=== PATIENT | female | born 1950 | race Caucasian/White ===

== ENCOUNTER 2017-04-26 17:04 | Emergency (ER) | payer OTHER, MEDICARE ==
[~2017-04-26] VITALS: Ht 165.1 cm; Wt 55.3 kg
[~2017-04-26 17:04] MED LIST: CLOP75TA2 PO; ENAL5TAB85 PO; INSU1CAR SQ; LIP20 PO; RALO60TA PO; SERT100T PO
[2017-04-26 17:15] VITALS: BP_SYST 102
[2017-04-26 18:08] LABS: BASOPHILS % (AUTO) 0.7 % (0.0-2.0); EOSINOPHILS # (AUTO) 0.1 K/uL (0.0-0.4); EOSINOPHILS % (AUTO) 2.7 % (0.0-4.0); HEMATOCRIT 31.5 % (36-48); HEMOGLOBIN 10.5 g/dL (12.0-16.0); LYMPHOCYTES # (AUTO) 1.5 K/uL (1.0-5.5); LYMPHOCYTES % (AUTO) 27.7 % (20.5-51.5); MEAN CORPUSCULAR HEMOGLOBIN 31 pg (27-31); MEAN CORPUSCULAR HGB CONC 33 % (32-36); MEAN CORPUSCULAR VOLUME 93 fL (79.0-98.0); MONOCYTES # (AUTO) 0.3 K/uL (0.0-1.0); MONOCYTES % (AUTO) 6.3 % (1.7-9.3); NEUTROPHILS # (AUTO) 3.4 K/uL (1.8-7.7); NEUTROPHILS % (AUTO) 62.6 % (40.0-70.0); PLATELET COUNT (AUTO) 276 K/uL (130-430); RED BLOOD CELL COUNT(AUTO) 3.38 MIL/uL (4.2-6.2); RED CELL DISTRIBUTION WIDTH 11.9 % (9.0-15.0); WHITE BLOOD COUNT (AUTO) 5.3 K/uL (4.8-10.8)
[2017-04-26 18:09] LABS: CALCIUM 9.2 mg/dL (8.4-11.0); CREATININE 2.44 mg/dL (0.55-1.30); POTASSIUM 4.9 mmol/L (3.5-5.1)
[2017-04-26 18:25] LABS: ALBUMIN 3.3 g/dL (3.4-4.8); TOTAL BILIRUBIN 0.3 mg/dL (0.0-1.0)
[2017-04-26] MEDS ORDERED: NACL 0.9% 1,000 ML IV ONE (18:45)
[2017-04-26 19:41] LABS: BILIRUBIN,URINE NEGATIVE (NEGATIVE); BLOOD, URINE 1+ (NEGATIVE); CLARITY/URINE HAZY (CLEAR); COLOR,URINE YELLOW (YELLOW); GLUCOSE,URINE TRACE (NEGATIVE); KETONES,URINE NEGATIVE (NEGATIVE); LEUKOCYTE ESTERASE ,URINE 3+ (NEGATIVE); NITRITE, URINE NEGATIVE (NEGATIVE); PH,URINE 5.5 (5.0-8.0); PROTEIN URINE TRACE (NEGATIVE); UROBILINOGEN,URINE 0.2 (0.2-1.0)
[2017-04-26] MEDS ORDERED: DEXTROSE 50% JECT 50 ML DISP.SYRIN IVP ONE (19:45)
[2017-04-26 19:47] LABS: BACTERIA,URINE MANY /HPF (None Seen); MUCUS,URINE None Seen /LPF (None Seen); RBC,URINE 0-3 /HPF (0-3); WBC,URINE 80-100 /HPF (0-3)
[2017-04-26] MEDS ORDERED: cefTRIAXone 1 GM IVPB PREMIX 50 ML IV ONE (20:00)
[2017-04-26 22:10] VITALS: BP_SYST 114
== END 2017-04-26 22:10 | disposition home or self-care (01) ==
LOC: SED 17:04
DX: E11.65 Type 2 diabetes mellitus with hyperglycemia (principal); N39.0 Urinary tract infection, site not specified; I10 Essential (primary) hypertension; Z90.49 Acquired absence of other specified parts of digestive tract; Z79.4 Long term (current) use of insulin; Z88.8 Allergy status to other drugs, medicaments and biological substances
CPT/HCPCS: 36415; 80053; 81000; 82962; 83605; 84484; 85025; 87040; 87086; 87186; 93005; 96361; 96365; 99285; J0696; J7030

== ENCOUNTER 2017-06-17 17:41 | Emergency (ER) | payer OTHER, MEDICARE, MEDICAID ==
[~2017-06-17] VITALS: Ht 165.1 cm; Wt 55.3 kg
[2017-06-17 17:41] VITALS: BP_SYST 117
[2017-06-17] MEDS ORDERED: DEXTROSE 50% JECT 50 ML DISP.SYRIN ONE (18:02)
[2017-06-17] MEDS ORDERED: DEXTROSE 50% JECT 50 ML DISP.SYRIN IVP ONE (18:15)
[2017-06-17 18:39] LABS: BASOPHILS % (AUTO) 0.6 % (0.0-2.0); EOSINOPHILS # (AUTO) 0.2 K/uL (0.0-0.4); EOSINOPHILS % (AUTO) 2.7 % (0.0-4.0); HEMATOCRIT 29.9 % (36-48); HEMOGLOBIN 9.9 g/dL (12.0-16.0); LYMPHOCYTES # (AUTO) 1.4 K/uL (1.0-5.5); LYMPHOCYTES % (AUTO) 21.1 % (20.5-51.5); MEAN CORPUSCULAR HEMOGLOBIN 32 pg (27-31); MEAN CORPUSCULAR HGB CONC 33 % (32-36); MEAN CORPUSCULAR VOLUME 98 fL (79.0-98.0); MONOCYTES # (AUTO) 0.4 K/uL (0.0-1.0); MONOCYTES % (AUTO) 6.1 % (1.7-9.3); NEUTROPHILS # (AUTO) 4.6 K/uL (1.8-7.7); NEUTROPHILS % (AUTO) 69.5 % (40.0-70.0); PLATELET COUNT (AUTO) 223 K/uL (130-430); RED BLOOD CELL COUNT(AUTO) 3.06 MIL/uL (4.2-6.2); RED CELL DISTRIBUTION WIDTH 12.4 % (9.0-15.0); WHITE BLOOD COUNT (AUTO) 6.6 K/uL (4.8-10.8)
[2017-06-17 18:41] LABS: CALCIUM 8.7 mg/dL (8.4-11.0); CREATININE 2.76 mg/dL (0.55-1.30)
[2017-06-17 18:55] LABS: THYROID STIMULATING HORMONE 0.25 uIu/mL (0.36-3.74); TOTAL BILIRUBIN 0.2 mg/dL (0.0-1.0)
[2017-06-17 21:24] VITALS: BP_SYST 132
== END 2017-06-17 21:24 | disposition home or self-care (01) ==
LOC: SED 17:41
DX: E11.649 Type 2 diabetes mellitus with hypoglycemia without coma (principal); E11.22 Type 2 diabetes mellitus with diabetic chronic kidney disease; I12.9 Hypertensive chronic kidney disease with stage 1 through stage 4 chronic kidney disease, or unspecified chronic kidney disease; N18.9 Chronic kidney disease, unspecified; D64.9 Anemia, unspecified; E34.9 Endocrine disorder, unspecified; Z79.4 Long term (current) use of insulin
CPT/HCPCS: 36415; 71010; 80053; 84439; 84443-TC; 84484; 85025; 93005; 96374; 99285

== ENCOUNTER 2018-06-07 21:43 | Inpatient (IN) | payer MEDICAID, MEDICARE, OTHER ==
[~2018-06-07] VITALS: Ht 162.6 cm; Wt 54.9 kg
[~2018-06-07 21:43] MED LIST changes: +ENAL5TAB77 PO; -ENAL5TAB85 PO; -INSU1CAR SQ; +INSU1CAR16 SQ
[2018-06-07 22:00] VITALS: BP_SYST 158
[2018-06-07] MEDS ORDERED: LEVO100T9 PO (22:56)
[2018-06-07] MEDS ORDERED: PARO-41 PO (22:56)
[2018-06-07] MEDS ORDERED: MIRA50TA PO (22:57)
[2018-06-07] MEDS ORDERED: CALC1CAP19 PO (22:58)
[2018-06-07] MEDS ORDERED: ATOR10TA68 PO (22:59)
[2018-06-07] MEDS ORDERED: TAMS-11 PO (22:59)
[2018-06-07] MEDS ORDERED: FOLI-43 PO (23:00)
[2018-06-07] MEDS ORDERED: MULT-1164 PO (23:01)
[2018-06-07] MEDS ORDERED: ACET-2165 PO (23:01)
[2018-06-07] MEDS ORDERED: NACL 0.9% 1,000 ML IV ONE (23:02)
[2018-06-07] MEDS ORDERED: DICY10CA13 PO (23:03)
[2018-06-07] MEDS ORDERED: INSU100V SQ (23:05)
[2018-06-07] MEDS ORDERED: INSU300I SQ ×2 (23:06)
[2018-06-07] MEDS ORDERED: INSULIN REGULAR, HUMAN 10 UNITS/0.1 ML INJ IVP ONE (23:15)
[2018-06-07 23:25] LABS: BASOPHILS % (AUTO) 0.2 % (0.0-2.0); EOSINOPHILS % (AUTO) 0.3 % (0.0-4.0); HEMATOCRIT 37.3 % (36-48); HEMOGLOBIN 11.9 g/dL (12.0-16.0); LYMPHOCYTES # (AUTO) 0.8 K/uL (1.0-5.5); LYMPHOCYTES % (AUTO) 5.1 % (20.5-51.5); MEAN CORPUSCULAR HEMOGLOBIN 33 pg (27-31); MEAN CORPUSCULAR HGB CONC 32 % (32-36); MEAN CORPUSCULAR VOLUME 105 fL (79.0-98.0); MONOCYTES # (AUTO) 0.7 K/uL (0.0-1.0); MONOCYTES % (AUTO) 4.5 % (1.7-9.3); NEUTROPHILS # (AUTO) 14.2 K/uL (1.8-7.7); NEUTROPHILS % (AUTO) 89.9 % (40.0-70.0); PLATELET COUNT (AUTO) 248 K/uL (130-430); PROTHROMBIN TIME 10.4 SECS (9.5-12.5); RED BLOOD CELL COUNT(AUTO) 3.57 MIL/uL (4.2-6.2); RED CELL DISTRIBUTION WIDTH 12.4 % (9.0-15.0); WHITE BLOOD COUNT (AUTO) 15.8 K/uL (4.8-10.8)
[2018-06-07 23:26] LABS: ANION GAP 31 (5-15); CALCIUM 9.6 mg/dL (8.4-11.0); CHLORIDE 88 mmol/L (98-107); SODIUM SERUM 129 mmol/L (136-145); UREA NITROGEN, BLOOD 68 mg/dL (8-21)
[2018-06-07 23:27] LABS: ALANINE AMINOTRANSFERASE 20 U/L (12-78); ALBUMIN 3.6 g/dL (3.4-4.8); ASPARTATE AMINOTRANSFERASE 21 U/L (10-37); TOTAL BILIRUBIN 0.8 mg/dL (0.0-1.0)
[2018-06-07 23:39] LABS: ACETONE, SERUM MODERATE (NEGATIVE)
[2018-06-07 23:42] LABS: GFR AFRICAN AMERICAN 16 mL/min (>90)
[2018-06-07 23:43] LABS: GLUCOSE 910 mg/dL (70-99); POTASSIUM 6.5 mmol/L (3.5-5.1)
[2018-06-08] VITALS (21 sets, daily range): BP systolic 106–146
[2018-06-08] MEDS ORDERED: NACL 0.9% 1,000 ML IV ONE (00:13)
[2018-06-08] MEDS ORDERED: ASPIRIN 81 MG TAB.CHEW PO ONE (00:15)
[2018-06-08] MEDS ORDERED: INSULIN REGULAR, HUMAN 10 UNITS/0.1 ML INJ IVP ONE (00:30)
[2018-06-08] MEDS ORDERED: ASPIRIN 81 MG TAB.CHEW ONE (00:51)
[2018-06-08] MEDS ORDERED: 0.45% NACL 1,000 ML IV SCH (01:01)
[2018-06-08] MEDS ORDERED: DEXTROSE 50% JECT 50 ML DISP.SYRIN IVP PRN (01:30)
[2018-06-08] MEDS: INSULIN REGULAR, HUMAN 100 UNITS in NS 99 ML IV PRN ×2 (02:00)
[2018-06-08] MEDS ORDERED: CEFEPIME 1 GM/VIAL (MAXIPIME) ONE (02:11)
[2018-06-08 02:36] LABS: CALCIUM 8.6 mg/dL (8.4-11.0); CREATININE 3.69 mg/dL (0.55-1.30); POTASSIUM 4.6 mmol/L (3.5-5.1)
[2018-06-08] MEDS: ACETAMINOPHEN 325 MG TABLET PO PRN (02:39)
[2018-06-08 04:32] LABS: BILIRUBIN,URINE 1+ (NEGATIVE); BLOOD, URINE 3+ (NEGATIVE); CLARITY/URINE SL HAZY (CLEAR); COLOR,URINE YELLOW (YELLOW); GLUCOSE,URINE 3+ (NEGATIVE); KETONES,URINE 2+ (NEGATIVE); LEUKOCYTE ESTERASE ,URINE NEGATIVE (NEGATIVE); NITRITE, URINE NEGATIVE (NEGATIVE); PH,URINE 5.5 (5.0-8.0); PROTEIN URINE TRACE (NEGATIVE); UROBILINOGEN,URINE 0.2 (0.2-1.0)
[2018-06-08 04:53] LABS: BACTERIA,URINE MODERATE /HPF (None Seen); RBC,URINE 20-50 /HPF (0-3)
[2018-06-08] MEDS: LEVOTHYROXINE SODIUM 0.1 MG TABLET PO SCH (06:51)
[2018-06-08 07:12] LABS: BASOPHILS % (AUTO) 0.3 % (0.0-2.0); HEMOGLOBIN 10.7 g/dL (12.0-16.0); LYMPHOCYTES # (AUTO) 1.3 K/uL (1.0-5.5); LYMPHOCYTES % (AUTO) 8.9 % (20.5-51.5); MEAN CORPUSCULAR HEMOGLOBIN 34 pg (27-31); MEAN CORPUSCULAR HGB CONC 34 % (32-36); MEAN CORPUSCULAR VOLUME 100 fL (79.0-98.0); MONOCYTES # (AUTO) 0.8 K/uL (0.0-1.0); MONOCYTES % (AUTO) 5.9 % (1.7-9.3); NEUTROPHILS # (AUTO) 12.3 K/uL (1.8-7.7); NEUTROPHILS % (AUTO) 84.9 % (40.0-70.0); PLATELET COUNT (AUTO) 202 K/uL (130-430); RED CELL DISTRIBUTION WIDTH 11.5 % (9.0-15.0); WHITE BLOOD COUNT (AUTO) 14.4 K/uL (4.8-10.8)
[2018-06-08 07:23] LABS: PHOSPHORUS 3.2 mg/dL (2.7-4.5)
[2018-06-08] MEDS ORDERED: DICYCLOMINE HCL 10 MG CAPSULE PO PRN (07:30)
[2018-06-08 07:50] LABS: ACETONE, SERUM SMALL (NEGATIVE)
[2018-06-08 08:06] LABS: ANION GAP 16 (5-15); CHLORIDE 101 mmol/L (98-107); POTASSIUM 4.2 mmol/L (3.5-5.1); SODIUM SERUM 135 mmol/L (136-145)
[2018-06-08 08:09] LABS: CALCIUM 8.5 mg/dL (8.4-11.0); CREATININE 3.47 mg/dL (0.55-1.30); GFR AFRICAN AMERICAN 17 mL/min (>90); GLUCOSE 460 mg/dL (70-99); UREA NITROGEN, BLOOD 68 mg/dL (8-21)
[2018-06-08 08:10] LABS: ALANINE AMINOTRANSFERASE 19 U/L (12-78); ASPARTATE AMINOTRANSFERASE 18 U/L (10-37); TOTAL BILIRUBIN 0.4 mg/dL (0.0-1.0)
[2018-06-08] MEDS: CLOPIDOGREL BISULFATE 75 MG TABLET PO SCH (08:43)
[2018-06-08] MEDS: FOLIC ACID 1 MG TABLET PO SCH (08:43)
[2018-06-08] MEDS: MULTIVITS,CA,MINERALS/IRON/FA 1 TABLET PO SCH (08:44)
[2018-06-08] MEDS: CALCIUM CARBONATE/VITAMIN D3 1 TAB TABLET PO SCH (08:44)
[2018-06-08] MEDS: PARoxetine HCL 20 MG TABLET PO SCH (08:44)
[2018-06-08] MEDS: KCL 20 mEq in 0.45% NS 1000 mL 1,000 ML IV SCH ×3 (08:45→20:53)
[2018-06-08] MEDS ORDERED: MYRBETRIQ 50 MG PO SCH (09:00)
[2018-06-08] MEDS ORDERED: CALCIUM CARBONATE PO SCH (09:00)
[2018-06-08] MEDS ORDERED: VITAMIN D3 PO SCH (09:00)
[2018-06-08] MEDS ORDERED: [UNRECOGNIZED DRUG - OTHER] PO SCH (09:00)
[2018-06-08 10:45] LABS: CALCIUM 8.2 mg/dL (8.4-11.0); CREATININE 3.34 mg/dL (0.55-1.30); POTASSIUM 4.3 mmol/L (3.5-5.1)
[2018-06-08 14:35] LABS: CALCIUM 8.3 mg/dL (8.4-11.0); CREATININE 3.26 mg/dL (0.55-1.30); POTASSIUM 4.5 mmol/L (3.5-5.1)
[2018-06-08 18:28] LABS: CALCIUM 8.3 mg/dL (8.4-11.0); CREATININE 2.95 mg/dL (0.55-1.30); POTASSIUM 4.9 mmol/L (3.5-5.1)
[2018-06-08] MEDS: ATORVASTATIN 10 MG TABLET PO SCH (20:52)
[2018-06-08] MEDS: CEFEPIME 1 GM in D5W 50 ML IV SCH (20:52)
[2018-06-08] MEDS: TAMSULOSIN HCL 0.4 MG CAP PO SCH (20:53)
[2018-06-08] MEDS ORDERED: NON-FORMULARY MEDICATION (Tamsulosin Hcl (Flomax) 0.4 MG) PO SCH (21:00)
[2018-06-08 22:21] LABS: CALCIUM 8.2 mg/dL (8.4-11.0); CREATININE 2.8 mg/dL (0.55-1.30)
[2018-06-09] VITALS (24 sets, daily range): BP systolic 107–172
[2018-06-09] MEDS: KCL 20 mEq in 0.45% NS 1000 mL 1,000 ML IV SCH ×2 (03:16→11:53)
[2018-06-09 06:22] LABS: BASOPHILS % (AUTO) 0.3 % (0.0-2.0); EOSINOPHILS # (AUTO) 0.1 K/uL (0.0-0.4); EOSINOPHILS % (AUTO) 0.4 % (0.0-4.0); HEMATOCRIT 31.5 % (36-48); HEMOGLOBIN 10.5 g/dL (12.0-16.0); LYMPHOCYTES # (AUTO) 1.5 K/uL (1.0-5.5); LYMPHOCYTES % (AUTO) 11.2 % (20.5-51.5); MEAN CORPUSCULAR HEMOGLOBIN 33 pg (27-31); MEAN CORPUSCULAR HGB CONC 33 % (32-36); MEAN CORPUSCULAR VOLUME 100 fL (79.0-98.0); MONOCYTES # (AUTO) 0.6 K/uL (0.0-1.0); MONOCYTES % (AUTO) 4.3 % (1.7-9.3); NEUTROPHILS # (AUTO) 11.3 K/uL (1.8-7.7); NEUTROPHILS % (AUTO) 83.8 % (40.0-70.0); PLATELET COUNT (AUTO) 194 K/uL (130-430); RED BLOOD CELL COUNT(AUTO) 3.16 MIL/uL (4.2-6.2); WHITE BLOOD COUNT (AUTO) 13.5 K/uL (4.8-10.8)
[2018-06-09] MEDS: LEVOTHYROXINE SODIUM 0.1 MG TABLET PO SCH (07:05)
[2018-06-09 07:17] LABS: SODIUM SERUM 135 mmol/L (136-145)
[2018-06-09 07:18] LABS: ANION GAP 8 (5-15); CALCIUM 8.3 mg/dL (8.4-11.0); CHLORIDE 105 mmol/L (98-107); CREATININE 2.64 mg/dL (0.55-1.30); GFR AFRICAN AMERICAN 23 mL/min (>90); GLUCOSE 244 mg/dL (70-99); POTASSIUM 4.5 mmol/L (3.5-5.1); UREA NITROGEN, BLOOD 61 mg/dL (8-21)
[2018-06-09 07:19] LABS: AMYLASE 455 U/L (0-100); LIPASE 188 U/L (73-393)
[2018-06-09 07:52] LABS: ACETONE, SERUM NEGATIVE (NEGATIVE)
[2018-06-09] MEDS: CALCIUM CARBONATE/VITAMIN D3 1 TAB TABLET PO SCH ×2 (08:58→09:00)
[2018-06-09] MEDS: PARoxetine HCL 20 MG TABLET PO SCH ×2 (08:58→09:00)
[2018-06-09] MEDS: MULTIVITS,CA,MINERALS/IRON/FA 1 TABLET PO SCH ×2 (08:58→09:00)
[2018-06-09] MEDS: FOLIC ACID 1 MG TABLET PO SCH ×2 (08:58→09:00)
[2018-06-09] MEDS: CLOPIDOGREL BISULFATE 75 MG TABLET PO SCH ×2 (08:58→09:00)
[2018-06-09] MEDS: INSULIN REGULAR, HUMAN 100 UNITS in NS 99 ML IV PRN ×2 (13:05)
[2018-06-09] MEDS: TAMSULOSIN HCL 0.4 MG CAP PO SCH (20:40)
[2018-06-09] MEDS: CEFEPIME 1 GM in D5W 50 ML IV SCH (20:40)
[2018-06-09] MEDS: ATORVASTATIN 10 MG TABLET PO SCH (20:41)
[2018-06-09] MEDS: ACETAMINOPHEN 325 MG TABLET PO PRN (22:30)
[2018-06-09] MEDS: ONDANSETRON HCL 4 MG/2 ML VIAL IVP PRN (22:35)
[2018-06-10] VITALS (24 sets, daily range): BP systolic 118–178
[2018-06-10] MEDS: ACETAMINOPHEN 325 MG TABLET PO PRN (02:23)
[2018-06-10] MEDS: ONDANSETRON HCL 4 MG/2 ML VIAL IVP PRN ×2 (02:46→10:08)
[2018-06-10 05:32] LABS: CALCIUM 8.9 mg/dL (8.4-11.0); CREATININE 2.26 mg/dL (0.55-1.30)
[2018-06-10 05:33] LABS: BASOPHILS % (AUTO) 0.4 % (0.0-2.0); EOSINOPHILS # (AUTO) 0.1 K/uL (0.0-0.4); EOSINOPHILS % (AUTO) 0.9 % (0.0-4.0); HEMATOCRIT 35.1 % (36-48); HEMOGLOBIN 12.1 g/dL (12.0-16.0); LYMPHOCYTES # (AUTO) 0.5 K/uL (1.0-5.5); LYMPHOCYTES % (AUTO) 5.2 % (20.5-51.5); MEAN CORPUSCULAR HEMOGLOBIN 35 pg (27-31); MEAN CORPUSCULAR HGB CONC 35 % (32-36); MEAN CORPUSCULAR VOLUME 101 fL (79.0-98.0); MONOCYTES # (AUTO) 0.4 K/uL (0.0-1.0); MONOCYTES % (AUTO) 3.8 % (1.7-9.3); NEUTROPHILS # (AUTO) 8.3 K/uL (1.8-7.7); NEUTROPHILS % (AUTO) 89.7 % (40.0-70.0); PLATELET COUNT (AUTO) 157 K/uL (130-430); RED BLOOD CELL COUNT(AUTO) 3.47 MIL/uL (4.2-6.2); RED CELL DISTRIBUTION WIDTH 12.2 % (9.0-15.0)
[2018-06-10 05:36] LABS: WHITE BLOOD COUNT (AUTO) 9.3 K/uL (4.8-10.8)
[2018-06-10 05:47] LABS: ALBUMIN 2.8 g/dL (3.4-4.8); TOTAL BILIRUBIN 0.8 mg/dL (0.0-1.0)
[2018-06-10 06:01] LABS: POTASSIUM 6.8 mmol/L (3.5-5.1)
[2018-06-10] MEDS: LEVOTHYROXINE SODIUM 0.1 MG TABLET PO SCH (06:52)
[2018-06-10] MEDS: INSULIN REGULAR, HUMAN 100 UNITS/ML, 10 ML VIAL (novoLIN R) SUBCUT PRN ×3 (07:23→17:37)
[2018-06-10] MEDS ORDERED: SODIUM POLYSTYRENE SULFONATE 15 GM/60 ML UDBTL PO ONE (07:30)
[2018-06-10] MEDS: 0.45% NACL 1,000 ML IV SCH ×2 (08:29→19:31)
[2018-06-10] MEDS: PARoxetine HCL 20 MG TABLET PO SCH (09:45)
[2018-06-10] MEDS: MULTIVITS,CA,MINERALS/IRON/FA 1 TABLET PO SCH (09:45)
[2018-06-10] MEDS: CALCIUM CARBONATE/VITAMIN D3 1 TAB TABLET PO SCH (09:45)
[2018-06-10] MEDS: FOLIC ACID 1 MG TABLET PO SCH (09:45)
[2018-06-10] MEDS: CLOPIDOGREL BISULFATE 75 MG TABLET PO SCH (09:45)
[2018-06-10] MEDS ORDERED: METOPROLOL TARTRATE 50 MG TABLET PO ONE (10:30)
[2018-06-10 17:59] LABS: CALCIUM 8.6 mg/dL (8.4-11.0); CREATININE 2.17 mg/dL (0.55-1.30); POTASSIUM 4.4 mmol/L (3.5-5.1)
[2018-06-10] MEDS: ATORVASTATIN 10 MG TABLET PO SCH (20:08)
[2018-06-10] MEDS: TAMSULOSIN HCL 0.4 MG CAP PO SCH (20:08)
[2018-06-10] MEDS: METOPROLOL TARTRATE 50 MG TABLET PO SCH (20:09)
[2018-06-10] MEDS: CEFEPIME 1 GM in D5W 50 ML IV SCH (20:10)
[2018-06-11] VITALS (19 sets, daily range): BP systolic 114–150
[2018-06-11] MEDS: LEVOTHYROXINE SODIUM 0.1 MG TABLET PO SCH (06:11)
[2018-06-11] MEDS: 0.45% NACL 1,000 ML IV SCH ×2 (06:12→17:33)
[2018-06-11 06:23] LABS: BASOPHILS # (AUTO) 0.1 K/uL (0.0-0.2); BASOPHILS % (AUTO) 0.9 % (0.0-2.0); EOSINOPHILS # (AUTO) 0.2 K/uL (0.0-0.4); EOSINOPHILS % (AUTO) 2.5 % (0.0-4.0); HEMOGLOBIN 11.4 g/dL (12.0-16.0); LYMPHOCYTES # (AUTO) 2.1 K/uL (1.0-5.5); LYMPHOCYTES % (AUTO) 24.5 % (20.5-51.5); MEAN CORPUSCULAR HEMOGLOBIN 35 pg (27-31); MEAN CORPUSCULAR HGB CONC 36 % (32-36); MEAN CORPUSCULAR VOLUME 97 fL (79.0-98.0); MONOCYTES # (AUTO) 0.6 K/uL (0.0-1.0); MONOCYTES % (AUTO) 6.8 % (1.7-9.3); NEUTROPHILS # (AUTO) 5.5 K/uL (1.8-7.7); NEUTROPHILS % (AUTO) 65.3 % (40.0-70.0); PLATELET COUNT (AUTO) 177 K/uL (130-430); RED BLOOD CELL COUNT(AUTO) 3.29 MIL/uL (4.2-6.2); RED CELL DISTRIBUTION WIDTH 12.1 % (9.0-15.0)
[2018-06-11 07:05] LABS: WHITE BLOOD COUNT (AUTO) 8.5 K/uL (4.8-10.8)
[2018-06-11 07:07] LABS: CALCIUM 8.5 mg/dL (8.4-11.0); POTASSIUM 3.5 mmol/L (3.5-5.1)
[2018-06-11] MEDS: FOLIC ACID 1 MG TABLET PO SCH (09:06)
[2018-06-11] MEDS: CALCIUM CARBONATE/VITAMIN D3 1 TAB TABLET PO SCH (09:07)
[2018-06-11] MEDS: MULTIVITS,CA,MINERALS/IRON/FA 1 TABLET PO SCH (09:07)
[2018-06-11] MEDS: METOPROLOL TARTRATE 50 MG TABLET PO SCH ×2 (09:07→20:14)
[2018-06-11] MEDS: PARoxetine HCL 20 MG TABLET PO SCH (09:07)
[2018-06-11] MEDS: CLOPIDOGREL BISULFATE 75 MG TABLET PO SCH (09:10)
[2018-06-11] MEDS: INSULIN REGULAR, HUMAN 100 UNITS/ML, 10 ML VIAL (novoLIN R) SUBCUT PRN ×3 (11:23→20:21)
[2018-06-11] MEDS: TAMSULOSIN HCL 0.4 MG CAP PO SCH (20:14)
[2018-06-11] MEDS: ATORVASTATIN 10 MG TABLET PO SCH (20:14)
[2018-06-11] MEDS: CEFEPIME 1 GM in D5W 50 ML IV SCH (20:15)
[2018-06-12] MEDS: LEVOTHYROXINE SODIUM 0.1 MG TABLET PO SCH (06:08)
[2018-06-12 06:40] LABS: BASOPHILS # (AUTO) 0.1 K/uL (0.0-0.2); EOSINOPHILS # (AUTO) 0.3 K/uL (0.0-0.4); EOSINOPHILS % (AUTO) 5.2 % (0.0-4.0); HEMOGLOBIN 11.9 g/dL (12.0-16.0); LYMPHOCYTES % (AUTO) 32.3 % (20.5-51.5); MEAN CORPUSCULAR HEMOGLOBIN 34 pg (27-31); MEAN CORPUSCULAR HGB CONC 35 % (32-36); MEAN CORPUSCULAR VOLUME 97 fL (79.0-98.0); MONOCYTES # (AUTO) 0.3 K/uL (0.0-1.0); MONOCYTES % (AUTO) 5.5 % (1.7-9.3); NEUTROPHILS # (AUTO) 3.6 K/uL (1.8-7.7); PLATELET COUNT (AUTO) 176 K/uL (130-430); RED CELL DISTRIBUTION WIDTH 11.6 % (9.0-15.0); WHITE BLOOD COUNT (AUTO) 6.3 K/uL (4.8-10.8)
[2018-06-12 06:44] LABS: CALCIUM 8.4 mg/dL (8.4-11.0); CREATININE 1.73 mg/dL (0.55-1.30); POTASSIUM 3.4 mmol/L (3.5-5.1)
[2018-06-12 06:56] LABS: ALBUMIN 2.2 g/dL (3.4-4.8); TOTAL BILIRUBIN 0.3 mg/dL (0.0-1.0)
[2018-06-12 09:00] VITALS: BP_SYST 119
[2018-06-12] MEDS: CLOPIDOGREL BISULFATE 75 MG TABLET PO SCH (09:10)
[2018-06-12] MEDS: MULTIVITS,CA,MINERALS/IRON/FA 1 TABLET PO SCH (09:14)
[2018-06-12] MEDS: METOPROLOL TARTRATE 50 MG TABLET PO SCH ×2 (09:14→21:42)
[2018-06-12] MEDS: FOLIC ACID 1 MG TABLET PO SCH (09:14)
[2018-06-12] MEDS: PARoxetine HCL 20 MG TABLET PO SCH (09:14)
[2018-06-12] MEDS: CALCIUM CARBONATE/VITAMIN D3 1 TAB TABLET PO SCH (09:14)
[2018-06-12 11:30] VITALS: BP_SYST 149
[2018-06-12] MEDS: INSULIN REGULAR, HUMAN 100 UNITS/ML, 10 ML VIAL (novoLIN R) SUBCUT PRN ×3 (11:43→22:04)
[2018-06-12 15:53] VITALS: BP_SYST 144
[2018-06-12] MEDS: 0.45% NACL 1,000 ML IV SCH (16:27)
[2018-06-12] MEDS ORDERED: POTASSIUM CHLORIDE 20 MEQ TAB.PRT.SR PO ONE (16:30)
[2018-06-12 20:15] VITALS: BP_SYST 146
[2018-06-12] MEDS: TAMSULOSIN HCL 0.4 MG CAP PO SCH (21:41)
[2018-06-12] MEDS: ATORVASTATIN 10 MG TABLET PO SCH (21:42)
[2018-06-12] MEDS: CEFEPIME 1 GM in D5W 50 ML IV SCH (22:05)
[2018-06-13 00:40] VITALS: BP_SYST 139
[2018-06-13 07:20] LABS: CALCIUM 8.2 mg/dL (8.4-11.0); CREATININE 1.64 mg/dL (0.55-1.30); POTASSIUM 3.8 mmol/L (3.5-5.1)
[2018-06-13] MEDS: LEVOTHYROXINE SODIUM 0.1 MG TABLET PO SCH (07:22)
[2018-06-13 07:50] VITALS: BP_SYST 159
[2018-06-13] MEDS: CLOPIDOGREL BISULFATE 75 MG TABLET PO SCH (08:10)
[2018-06-13] MEDS: METOPROLOL TARTRATE 50 MG TABLET PO SCH ×2 (08:10→20:36)
[2018-06-13] MEDS: MULTIVITS,CA,MINERALS/IRON/FA 1 TABLET PO SCH (08:10)
[2018-06-13] MEDS: PARoxetine HCL 20 MG TABLET PO SCH (08:10)
[2018-06-13] MEDS: CALCIUM CARBONATE/VITAMIN D3 1 TAB TABLET PO SCH (08:10)
[2018-06-13] MEDS: FOLIC ACID 1 MG TABLET PO SCH (08:11)
[2018-06-13 11:33] VITALS: BP_SYST 136
[2018-06-13] MEDS: 0.45% NACL 1,000 ML IV SCH (11:37)
[2018-06-13] MEDS: INSULIN REGULAR, HUMAN 100 UNITS/ML, 10 ML VIAL (novoLIN R) SUBCUT PRN ×2 (11:38→17:12)
[2018-06-13] MEDS ORDERED: DEXTROSE 50%-WATER 50 ML DISP.SYRIN IVP PRN ×2 (13:45)
[2018-06-13] MEDS ORDERED: GLUCOSE 15 GM GEL (in 37.5 GM TUBE) PO PRN ×2 (13:45)
[2018-06-13 15:51] VITALS: BP_SYST 144
[2018-06-13 20:30] VITALS: BP_SYST 144
[2018-06-13] MEDS: TAMSULOSIN HCL 0.4 MG CAP PO SCH (20:35)
[2018-06-13] MEDS: CEFEPIME 1 GM in D5W 50 ML IV SCH (20:35)
[2018-06-13] MEDS: ATORVASTATIN 10 MG TABLET PO SCH (20:36)
[2018-06-14 00:54] VITALS: BP_SYST 142
[2018-06-14] MEDS: 0.45% NACL 1,000 ML IV SCH (05:18)
[2018-06-14] MEDS: LEVOTHYROXINE SODIUM 0.1 MG TABLET PO SCH (06:13)
[2018-06-14 08:12] VITALS: BP_SYST 125
[2018-06-14] MEDS: CLOPIDOGREL BISULFATE 75 MG TABLET PO SCH (09:13)
[2018-06-14] MEDS: FOLIC ACID 1 MG TABLET PO SCH (09:13)
[2018-06-14] MEDS: MULTIVITS,CA,MINERALS/IRON/FA 1 TABLET PO SCH (09:13)
[2018-06-14] MEDS: CALCIUM CARBONATE/VITAMIN D3 1 TAB TABLET PO SCH (09:13)
[2018-06-14] MEDS: PARoxetine HCL 20 MG TABLET PO SCH (09:13)
[2018-06-14] MEDS: METOPROLOL TARTRATE 50 MG TABLET PO SCH ×2 (09:14→21:23)
[2018-06-14] MEDS: INSULIN REGULAR, HUMAN 100 UNITS/ML, 10 ML VIAL (novoLIN R) SUBCUT PRN ×3 (11:47→21:26)
[2018-06-14 12:00] VITALS: BP_SYST 143
[2018-06-14 16:01] VITALS: BP_SYST 148
[2018-06-14 19:50] VITALS: BP_SYST 142
[2018-06-14] MEDS: ATORVASTATIN 10 MG TABLET PO SCH (21:22)
[2018-06-14] MEDS: TAMSULOSIN HCL 0.4 MG CAP PO SCH (21:23)
[2018-06-14] MEDS: CEFEPIME 1 GM in D5W 50 ML IV SCH (21:24)
[2018-06-15 00:35] VITALS: BP_SYST 133
[2018-06-15] MEDS: 0.45% NACL 1,000 ML IV SCH (02:19)
[2018-06-15 06:31] LABS: BASOPHILS # (AUTO) 0.1 K/uL (0.0-0.2); BASOPHILS % (AUTO) 1.9 % (0.0-2.0); EOSINOPHILS # (AUTO) 0.3 K/uL (0.0-0.4); EOSINOPHILS % (AUTO) 4.6 % (0.0-4.0); HEMATOCRIT 33.2 % (36-48); HEMOGLOBIN 11.6 g/dL (12.0-16.0); LYMPHOCYTES # (AUTO) 2.9 K/uL (1.0-5.5); MEAN CORPUSCULAR HEMOGLOBIN 34 pg (27-31); MEAN CORPUSCULAR HGB CONC 35 % (32-36); MEAN CORPUSCULAR VOLUME 97 fL (79.0-98.0); MONOCYTES # (AUTO) 0.5 K/uL (0.0-1.0); MONOCYTES % (AUTO) 6.7 % (1.7-9.3); NEUTROPHILS % (AUTO) 43.8 % (40.0-70.0); PLATELET COUNT (AUTO) 232 K/uL (130-430); RED BLOOD CELL COUNT(AUTO) 3.43 MIL/uL (4.2-6.2); RED CELL DISTRIBUTION WIDTH 11.6 % (9.0-15.0); WHITE BLOOD COUNT (AUTO) 6.8 K/uL (4.8-10.8)
[2018-06-15] MEDS: LEVOTHYROXINE SODIUM 0.1 MG TABLET PO SCH (06:31)
[2018-06-15 06:55] LABS: ALBUMIN 2.3 g/dL (3.4-4.8); CALCIUM 8.4 mg/dL (8.4-11.0); CREATININE 1.77 mg/dL (0.55-1.30); POTASSIUM 3.9 mmol/L (3.5-5.1); TOTAL BILIRUBIN 0.4 mg/dL (0.0-1.0)
[2018-06-15 08:20] VITALS: BP_SYST 129
[2018-06-15] MEDS: PARoxetine HCL 20 MG TABLET PO SCH (09:38)
[2018-06-15] MEDS: CALCIUM CARBONATE/VITAMIN D3 1 TAB TABLET PO SCH (09:38)
[2018-06-15] MEDS: FOLIC ACID 1 MG TABLET PO SCH (09:38)
[2018-06-15] MEDS: MULTIVITS,CA,MINERALS/IRON/FA 1 TABLET PO SCH (09:38)
[2018-06-15] MEDS: CLOPIDOGREL BISULFATE 75 MG TABLET PO SCH (09:39)
[2018-06-15] MEDS: METOPROLOL TARTRATE 50 MG TABLET PO SCH (09:39)
[2018-06-15 12:00] VITALS: BP_SYST 128
[2018-06-15] MEDS: INSULIN REGULAR, HUMAN 100 UNITS/ML, 10 ML VIAL (novoLIN R) SUBCUT PRN ×2 (12:24→17:26)
[2018-06-15 15:46] VITALS: BP_SYST 135
[2018-06-15 16:00] VITALS: BP_SYST 135
== END 2018-06-15 18:55 | DRG 871 ==
LOC: SED 21:43 → SIC 06-08 01:01 → STU 06-11 16:15
PROVIDERS: ADMIT Family Medicine; ATTEND Family Medicine
DX: A41.9 Sepsis, unspecified organism (principal); E11.00 Type 2 diabetes mellitus with hyperosmolarity without nonketotic hyperglycemic-hyperosmolar coma (NKHHC); E11.10 Type 2 diabetes mellitus with ketoacidosis without coma; G93.41 Metabolic encephalopathy; N17.0 Acute kidney failure with tubular necrosis; R65.21 Severe sepsis with septic shock; R47.01 Aphasia; N13.30 Unspecified hydronephrosis; E86.0 Dehydration; R56.9 Unspecified convulsions; N18.9 Chronic kidney disease, unspecified; E11.22 Type 2 diabetes mellitus with diabetic chronic kidney disease; I12.9 Hypertensive chronic kidney disease with stage 1 through stage 4 chronic kidney disease, or unspecified chronic kidney disease; E78.00 Pure hypercholesterolemia, unspecified; R13.10 Dysphagia, unspecified; E87.6 Hypokalemia; E87.5 Hyperkalemia; Z88.8 Allergy status to other drugs, medicaments and biological substances; Z86.73 Personal history of transient ischemic attack (TIA), and cerebral infarction without residual deficits; Z79.4 Long term (current) use of insulin; Z79.899 Other long term (current) drug therapy
CPT/HCPCS: 36415; 36600; 71045; 76770; 80048; 80053; 81000-TC; 82009-TC; 82150-TC; 82803-TC; 82962; 83605; 83690-TC; 83735-TC; 83880; 84100-TC; 84484; 85025; 85610-TC; 85730-TC; 87040-TC; 87081; 87086; 92610-GN; 93005; 96361; 96374; 96376; 97530-GP; 99285; J0692; J1815; J2405; J3480; J7030; J7060

== ENCOUNTER 2018-07-02 19:49 | Inpatient (IN) | payer OTHER ==
[~2018-07-02] VITALS: Ht 165.1 cm; Wt 58.1 kg
[~2018-07-02 19:49] MED LIST changes: +ACET-2165 PO; +ATOR10TA68 PO; +CALC1CAP19 PO; +DICY10CA13 PO; +FOLI-43 PO; +INSU100V SQ; -INSU1CAR16 SQ; +INSU300I SQ; +LEVO100T9 PO; -LIP20 PO; +MIRA50TA PO; +MULT-1164 PO; +PARO-41 PO; -RALO60TA PO; -SERT100T PO; +TAMS-11 PO
[2018-07-02 19:53] VITALS: BP_SYST 128
[2018-07-02] MEDS ORDERED: DEXTROSE 50% JECT 50 ML DISP.SYRIN IVP ONE ×2 (20:15→22:00)
[2018-07-02] MEDS ORDERED: NACL 0.9% 1,000 ML IV ONE (20:15)
[2018-07-02 20:40] LABS: CALCIUM 9.5 mg/dL (8.4-11.0); CREATININE 2.21 mg/dL (0.55-1.30); POTASSIUM 4.4 mmol/L (3.5-5.1)
[2018-07-02 20:42] LABS: BASOPHILS % (AUTO) 0.6 % (0.0-2.0); EOSINOPHILS # (AUTO) 0.3 K/uL (0.0-0.4); EOSINOPHILS % (AUTO) 5.2 % (0.0-4.0); HEMATOCRIT 35.5 % (36-48); HEMOGLOBIN 11.4 g/dL (12.0-16.0); LYMPHOCYTES # (AUTO) 2.9 K/uL (1.0-5.5); LYMPHOCYTES % (AUTO) 48.3 % (20.5-51.5); MEAN CORPUSCULAR HEMOGLOBIN 33 pg (27-31); MEAN CORPUSCULAR HGB CONC 32 % (32-36); MEAN CORPUSCULAR VOLUME 101 fL (79.0-98.0); MONOCYTES # (AUTO) 0.4 K/uL (0.0-1.0); MONOCYTES % (AUTO) 7.1 % (1.7-9.3); NEUTROPHILS # (AUTO) 2.2 K/uL (1.8-7.7); NEUTROPHILS % (AUTO) 38.8 % (40.0-70.0); PLATELET COUNT (AUTO) 241 K/uL (130-430); RED BLOOD CELL COUNT(AUTO) 3.53 MIL/uL (4.2-6.2); RED CELL DISTRIBUTION WIDTH 13.1 % (9.0-15.0); WHITE BLOOD COUNT (AUTO) 5.8 K/uL (4.8-10.8)
[2018-07-02 20:44] LABS: TOTAL BILIRUBIN 0.3 mg/dL (0.0-1.0)
[2018-07-02] MEDS ORDERED: ACETAMINOPHEN 500 MG TABLET PO ONE (22:00)
[2018-07-02] MEDS ORDERED: KCL 20 mEq in D5/0.45NS 1000mL 1,000 ML IV SCH (22:30)
[2018-07-02] MEDS ORDERED: METO-442 PO (22:35)
[2018-07-02 22:57] VITALS: BP_SYST 142
[2018-07-02] MEDS ORDERED: ACETAMINOPHEN 325 MG TABLET PO PRN (23:30)
[2018-07-03 03:37] VITALS: BP_SYST 122
[2018-07-03] MEDS: INSULIN REGULAR, HUMAN 100 UNITS/ML, 10 ML VIAL (novoLIN R) SUBCUT PRN ×3 (06:02→20:29)
[2018-07-03] MEDS: 0.45% NACL 1,000 ML IV SCH (08:54)
[2018-07-03] MEDS ORDERED: LEVOTHYROXINE SODIUM 0.1 MG TABLET PO SCH (09:00)
[2018-07-03] MEDS: CLOPIDOGREL BISULFATE 75 MG TABLET PO SCH (09:58)
[2018-07-03] MEDS: MULTIVITS,CA,MINERALS/IRON/FA 1 TABLET PO SCH (09:58)
[2018-07-03] MEDS: PARoxetine HCL 20 MG TABLET PO SCH (09:58)
[2018-07-03] MEDS: FOLIC ACID 1 MG TABLET PO SCH (09:59)
[2018-07-03] MEDS: METOPROLOL TARTRATE 50 MG TABLET PO SCH ×2 (09:59→20:30)
[2018-07-03 11:30] VITALS: BP_SYST 170
[2018-07-03] MEDS: cloNIDine HCL 0.2 MG TABLET PO PRN (14:21)
[2018-07-03 15:29] VITALS: BP_SYST 165
[2018-07-03] MEDS ORDERED: MUPIROCIN 2% TOPICAL OINTMENT 22 GM TP SCH (16:00)
[2018-07-03 20:00] VITALS: BP_SYST 158
[2018-07-03] MEDS: LOSARTAN POTASSIUM 50 MG TABLET (COZAAR) PO SCH (20:31)
[2018-07-03] MEDS: ATORVASTATIN 10 MG TABLET PO SCH (20:31)
[2018-07-04 02:04] VITALS: BP_SYST 160
[2018-07-04] MEDS: 0.45% NACL 1,000 ML IV SCH ×2 (02:49→23:15)
[2018-07-04] MEDS: LEVOTHYROXINE SODIUM 0.1 MG TABLET PO SCH (06:17)
[2018-07-04 08:02] VITALS: BP_SYST 156
[2018-07-04] MEDS: LOSARTAN POTASSIUM 50 MG TABLET (COZAAR) PO SCH ×2 (08:59→20:37)
[2018-07-04] MEDS: FOLIC ACID 1 MG TABLET PO SCH (08:59)
[2018-07-04] MEDS: CLOPIDOGREL BISULFATE 75 MG TABLET PO SCH (09:00)
[2018-07-04] MEDS: METOPROLOL TARTRATE 50 MG TABLET PO SCH ×2 (09:00→20:36)
[2018-07-04] MEDS: MULTIVITS,CA,MINERALS/IRON/FA 1 TABLET PO SCH (09:01)
[2018-07-04] MEDS: PARoxetine HCL 20 MG TABLET PO SCH (09:01)
[2018-07-04] MEDS ORDERED: LACTULOSE 20 GM/30 ML UDC PO ONE (11:00)
[2018-07-04] MEDS: INSULIN REGULAR, HUMAN 100 UNITS/ML, 10 ML VIAL (novoLIN R) SUBCUT PRN ×2 (11:59→20:32)
[2018-07-04 12:00] VITALS: BP_SYST 162
[2018-07-04] MEDS: cloNIDine HCL 0.2 MG TABLET PO PRN (12:00)
[2018-07-04 16:00] VITALS: BP_SYST 158
[2018-07-04] MEDS: ATORVASTATIN 10 MG TABLET PO SCH (20:36)
[2018-07-04] MEDS: MUPIROCIN 2% TOPICAL OINTMENT 22 GM NS SCH (20:39)
[2018-07-05 00:10] VITALS: BP_SYST 130
[2018-07-05] MEDS: LEVOTHYROXINE SODIUM 0.1 MG TABLET PO SCH (06:09)
[2018-07-05] MEDS: 0.45% NACL 1,000 ML IV SCH (07:36)
[2018-07-05 08:30] VITALS: BP_SYST 146
[2018-07-05] MEDS: CLOPIDOGREL BISULFATE 75 MG TABLET PO SCH ×2 (09:00→09:27)
[2018-07-05] MEDS: PARoxetine HCL 20 MG TABLET PO SCH (09:27)
[2018-07-05] MEDS: MULTIVITS,CA,MINERALS/IRON/FA 1 TABLET PO SCH (09:27)
[2018-07-05] MEDS: FOLIC ACID 1 MG TABLET PO SCH (09:29)
[2018-07-05] MEDS: METOPROLOL TARTRATE 50 MG TABLET PO SCH ×2 (09:29→21:17)
[2018-07-05] MEDS: LOSARTAN POTASSIUM 50 MG TABLET (COZAAR) PO SCH ×2 (09:30→21:17)
[2018-07-05] MEDS: MUPIROCIN 2% TOPICAL OINTMENT 22 GM NS SCH ×2 (09:30→21:16)
[2018-07-05] MEDS: INSULIN REGULAR, HUMAN 100 UNITS/ML, 10 ML VIAL (novoLIN R) SUBCUT PRN ×3 (11:43→21:21)
[2018-07-05 12:45] VITALS: BP_SYST 136
[2018-07-05 16:45] VITALS: BP_SYST 126
[2018-07-05 20:09] VITALS: BP_SYST 135
[2018-07-05] MEDS: ATORVASTATIN 10 MG TABLET PO SCH (21:17)
[2018-07-06] MEDS: 0.45% NACL 1,000 ML IV SCH (01:50)
[2018-07-06] MEDS: LEVOTHYROXINE SODIUM 0.1 MG TABLET PO SCH (06:07)
[2018-07-06] MEDS: INSULIN REGULAR, HUMAN 100 UNITS/ML, 10 ML VIAL (novoLIN R) SUBCUT PRN (06:11)
[2018-07-06 08:00] VITALS: BP_SYST 127
[2018-07-06] MEDS: CLOPIDOGREL BISULFATE 75 MG TABLET PO SCH (09:05)
[2018-07-06] MEDS: LOSARTAN POTASSIUM 50 MG TABLET (COZAAR) PO SCH (09:05)
[2018-07-06] MEDS: MULTIVITS,CA,MINERALS/IRON/FA 1 TABLET PO SCH (09:05)
[2018-07-06] MEDS: METOPROLOL TARTRATE 50 MG TABLET PO SCH (09:06)
[2018-07-06] MEDS: PARoxetine HCL 20 MG TABLET PO SCH (09:06)
[2018-07-06] MEDS: FOLIC ACID 1 MG TABLET PO SCH (09:06)
[2018-07-06] MEDS: MUPIROCIN 2% TOPICAL OINTMENT 22 GM NS SCH (09:23)
[2018-07-06 10:20] VITALS: BP_SYST 127
== END 2018-07-06 10:44 | disposition home health service (06) | DRG 682 ==
LOC: SED 19:49 → STU 22:30 → SMU 07-04 01:54
PROVIDERS: ADMIT Family Medicine; ATTEND Family Medicine
PROC: 0HQ0XZZ Repair Scalp Skin, External Approach (ICD-10-PCS; principal; 2018-07-03)
DX: N17.9 Acute kidney failure, unspecified (principal); G93.41 Metabolic encephalopathy; E11.649 Type 2 diabetes mellitus with hypoglycemia without coma; E11.22 Type 2 diabetes mellitus with diabetic chronic kidney disease; E03.9 Hypothyroidism, unspecified; N18.9 Chronic kidney disease, unspecified; I12.9 Hypertensive chronic kidney disease with stage 1 through stage 4 chronic kidney disease, or unspecified chronic kidney disease; I25.10 Atherosclerotic heart disease of native coronary artery without angina pectoris; S01.01XA Laceration without foreign body of scalp, initial encounter; Y93.01 Activity, walking, marching and hiking; M19.90 Unspecified osteoarthritis, unspecified site; W18.39XA Other fall on same level, initial encounter; E86.0 Dehydration; D64.9 Anemia, unspecified; Z79.4 Long term (current) use of insulin; Y99.8 Other external cause status; Y92.488 Other paved roadways as the place of occurrence of the external cause; Z86.73 Personal history of transient ischemic attack (TIA), and cerebral infarction without residual deficits; Z88.9 Allergy status to unspecified drugs, medicaments and biological substances
CPT/HCPCS: 36415; 70450-TC; 80053; 82962; 85025; 87081; 96361; 96374; 96376; 99285; J1815

== ENCOUNTER 2018-07-15 16:23 | Inpatient (IN) | payer OTHER ==
[~2018-07-15] VITALS: Ht 165.1 cm; Wt 53.5 kg
[2018-07-15 16:23] VITALS: BP_SYST 163
[~2018-07-15 16:23] MED LIST changes: -ENAL5TAB77 PO; +METO-442 PO; -MIRA50TA PO
[2018-07-15 17:14] LABS: EOSINOPHILS # (AUTO) 0.1 K/uL (0.0-0.4); LYMPHOCYTES # (AUTO) 1.3 K/uL (1.0-5.5); MONOCYTES # (AUTO) 0.5 K/uL (0.0-1.0); WHITE BLOOD COUNT (AUTO) 8.5 K/uL (4.8-10.8)
[2018-07-15 17:23] LABS: PROTHROMBIN TIME 10.2 SECS (9.5-12.5)
[2018-07-15 17:24] LABS: ANION GAP 8 (5-15); CALCIUM 9.5 mg/dL (8.4-11.0); CHLORIDE 98 mmol/L (98-107); CREATININE 2.05 mg/dL (0.55-1.30); GLUCOSE 294 mg/dL (70-99); POTASSIUM 4.5 mmol/L (3.5-5.1); SODIUM SERUM 132 mmol/L (136-145); UREA NITROGEN, BLOOD 29 mg/dL (8-21)
[2018-07-15 17:25] LABS: BASOPHILS # (AUTO) 0.1 K/uL (0.0-0.2); BASOPHILS % (AUTO) 1.5 % (0.0-2.0); EOSINOPHILS % (AUTO) 1.2 % (0.0-4.0); GFR AFRICAN AMERICAN 31 mL/min (>90); HEMATOCRIT 35.7 % (36-48); HEMOGLOBIN 11.4 g/dL (12.0-16.0); LYMPHOCYTES % (AUTO) 14.8 % (20.5-51.5); MEAN CORPUSCULAR HEMOGLOBIN 32 pg (27-31); MEAN CORPUSCULAR HGB CONC 32 % (32-36); MEAN CORPUSCULAR VOLUME 100 fL (79.0-98.0); MONOCYTES % (AUTO) 6.4 % (1.7-9.3); NEUTROPHILS # (AUTO) 6.5 K/uL (1.8-7.7); NEUTROPHILS % (AUTO) 76.1 % (40.0-70.0); PLATELET COUNT (AUTO) 280 K/uL (130-430); RED BLOOD CELL COUNT(AUTO) 3.58 MIL/uL (4.2-6.2); RED CELL DISTRIBUTION WIDTH 13.5 % (9.0-15.0)
[2018-07-15 17:35] LABS: ALANINE AMINOTRANSFERASE 24 U/L (12-78); ALBUMIN 3.1 g/dL (3.4-4.8); ASPARTATE AMINOTRANSFERASE 28 U/L (10-37); FREE T4 (FREE THYROXINE) 1.2 ng/dl (0.8-1.5); TOTAL BILIRUBIN 0.6 mg/dL (0.0-1.0)
[2018-07-15 17:36] LABS: ALCOHOL, BLOOD < 3 mg/dL (<10)
[2018-07-15 22:02] LABS: CLARITY/URINE CLOUDY (CLEAR); COLOR,URINE YELLOW (YELLOW)
[2018-07-15 22:03] LABS: BILIRUBIN,URINE NEGATIVE (NEGATIVE); BLOOD, URINE 2+ (NEGATIVE); GLUCOSE,URINE 1000 (NEGATIVE); KETONES,URINE NEGATIVE (NEGATIVE); LEUKOCYTE ESTERASE ,URINE 3+ (NEGATIVE); NITRITE, URINE POSITIVE (NEGATIVE); PROTEIN URINE TRACE (NEGATIVE); UROBILINOGEN,URINE 0.2 (0.2-1.0)
[2018-07-15 22:06] LABS: BARBITURATE, URINE NEGATIVE (NEG <=200); BENZODIAZEPINE, URINE NEGATIVE (NEG <=150); CANNABINOID, URINE NEGATIVE (NEG <=50); COCAINE, URINE NEGATIVE (NEG <=150); METHAMPHETAMINES SCREEN,URINE NEGATIVE (NEG <=500); OPIATE, URINE NEGATIVE (NEG <=100); PHENCYCLIDINE SCREEN,URINE NEGATIVE (NEG <=25); UR TRICYCLIC ANTIDEPRESSANTS NEGATIVE (NEG <=300); URINE AMPHETAMINE NEGATIVE (NEG <=500); URINE METHADONE NEGATIVE (NEG <=200); URINE OXYCODONE SCREEN NEGATIVE (NEG <=100); URINE PROPOXYPHENE SCREEN NEGATIVE (NEG <=300)
[2018-07-15 22:08] LABS: BACTERIA,URINE MODERATE /HPF (None Seen); WBC,URINE >100 /HPF (0-3)
[2018-07-15] MEDS ORDERED: CEFEPIME 2 GM in D5W 100 ML IV ONE (23:45)
[2018-07-15] MEDS ORDERED: NACL 0.9% 1,000 ML IV ONE ×2 (23:45)
[2018-07-16] VITALS (7 sets, daily range): BP systolic 125–178
[2018-07-16] MEDS ORDERED: CEFEPIME 1 GM/VIAL (MAXIPIME) ONE (00:22)
[2018-07-16] MEDS ORDERED: ACETAMINOPHEN 325 MG TABLET PO PRN (00:45)
[2018-07-16] MEDS: INSULIN REGULAR, HUMAN 100 UNITS/ML, 10 ML VIAL (novoLIN R) SUBCUT PRN ×6 (02:19→21:13)
[2018-07-16 07:05] LABS: BASOPHILS % (AUTO) 0.5 % (0.0-2.0); EOSINOPHILS # (AUTO) 0.1 K/uL (0.0-0.4); EOSINOPHILS % (AUTO) 2.4 % (0.0-4.0); HEMATOCRIT 30.8 % (36-48); HEMOGLOBIN 10.3 g/dL (12.0-16.0); LYMPHOCYTES # (AUTO) 1.1 K/uL (1.0-5.5); LYMPHOCYTES % (AUTO) 19.3 % (20.5-51.5); MEAN CORPUSCULAR HEMOGLOBIN 34 pg (27-31); MEAN CORPUSCULAR HGB CONC 34 % (32-36); MEAN CORPUSCULAR VOLUME 102 fL (79.0-98.0); MONOCYTES # (AUTO) 0.5 K/uL (0.0-1.0); MONOCYTES % (AUTO) 9.3 % (1.7-9.3); NEUTROPHILS # (AUTO) 4.2 K/uL (1.8-7.7); NEUTROPHILS % (AUTO) 68.5 % (40.0-70.0); PLATELET COUNT (AUTO) 262 K/uL (130-430); RED BLOOD CELL COUNT(AUTO) 3.02 MIL/uL (4.2-6.2); RED CELL DISTRIBUTION WIDTH 13.4 % (9.0-15.0); WHITE BLOOD COUNT (AUTO) 5.9 K/uL (4.8-10.8)
[2018-07-16 07:29] LABS: CALCIUM 8.8 mg/dL (8.4-11.0); CREATININE 1.9 mg/dL (0.55-1.30); POTASSIUM 3.9 mmol/L (3.5-5.1)
[2018-07-16] MEDS: MULTIVITS,CA,MINERALS/IRON/FA 1 TABLET PO SCH (08:32)
[2018-07-16] MEDS: FOLIC ACID 1 MG TABLET PO SCH (08:32)
[2018-07-16] MEDS: CEFEPIME 1 GM in D5W 50 ML IV SCH ×2 (08:32→21:00)
[2018-07-16] MEDS: PARoxetine HCL 20 MG TABLET PO SCH (08:32)
[2018-07-16] MEDS: LEVOTHYROXINE SODIUM 0.1 MG TABLET PO SCH (08:32)
[2018-07-16] MEDS: CLOPIDOGREL BISULFATE 75 MG TABLET PO SCH (08:32)
[2018-07-16] MEDS: METOPROLOL TARTRATE 50 MG TABLET PO SCH ×2 (08:35→21:03)
[2018-07-16] MEDS: ATORVASTATIN 10 MG TABLET PO SCH (21:00)
[2018-07-16] MEDS: TAMSULOSIN HCL 0.4 MG CAP PO SCH (21:00)
[2018-07-17 08:33] VITALS: BP_SYST 113
[2018-07-17] MEDS: CEFEPIME 1 GM in D5W 50 ML IV SCH ×2 (08:36→20:55)
[2018-07-17] MEDS: FOLIC ACID 1 MG TABLET PO SCH (08:36)
[2018-07-17] MEDS: METOPROLOL TARTRATE 50 MG TABLET PO SCH ×2 (08:37→20:57)
[2018-07-17] MEDS: MULTIVITS,CA,MINERALS/IRON/FA 1 TABLET PO SCH (08:37)
[2018-07-17] MEDS: LEVOTHYROXINE SODIUM 0.1 MG TABLET PO SCH (08:37)
[2018-07-17] MEDS: CLOPIDOGREL BISULFATE 75 MG TABLET PO SCH (08:37)
[2018-07-17] MEDS: PARoxetine HCL 20 MG TABLET PO SCH (08:37)
[2018-07-17] MEDS: INSULIN REGULAR, HUMAN 100 UNITS/ML, 10 ML VIAL (novoLIN R) SUBCUT PRN ×3 (11:34→21:05)
[2018-07-17 12:02] VITALS: BP_SYST 132
[2018-07-17] MEDS ORDERED: ENOXAPARIN SODIUM 30 MG/0.3 ML SYRINGE SUBCUT ONE (13:15)
[2018-07-17 16:02] VITALS: BP_SYST 133
[2018-07-17] MEDS: TAMSULOSIN HCL 0.4 MG CAP PO SCH (20:55)
[2018-07-17] MEDS: ATORVASTATIN 10 MG TABLET PO SCH (20:58)
[2018-07-17 21:00] VITALS: BP_SYST 140
[2018-07-18] VITALS: BP_SYST 145
[2018-07-18 06:46] LABS: CALCIUM 9.3 mg/dL (8.4-11.0); CREATININE 1.96 mg/dL (0.55-1.30); POTASSIUM 4.2 mmol/L (3.5-5.1)
[2018-07-18 07:07] LABS: BASOPHILS % (AUTO) 0.7 % (0.0-2.0); EOSINOPHILS # (AUTO) 0.2 K/uL (0.0-0.4); EOSINOPHILS % (AUTO) 3.3 % (0.0-4.0); HEMATOCRIT 31.8 % (36-48); HEMOGLOBIN 11.1 g/dL (12.0-16.0); LYMPHOCYTES # (AUTO) 1.5 K/uL (1.0-5.5); LYMPHOCYTES % (AUTO) 22.2 % (20.5-51.5); MEAN CORPUSCULAR HEMOGLOBIN 36 pg (27-31); MEAN CORPUSCULAR HGB CONC 35 % (32-36); MEAN CORPUSCULAR VOLUME 102 fL (79.0-98.0); MONOCYTES # (AUTO) 0.5 K/uL (0.0-1.0); MONOCYTES % (AUTO) 7.1 % (1.7-9.3); NEUTROPHILS # (AUTO) 4.8 K/uL (1.8-7.7); NEUTROPHILS % (AUTO) 66.7 % (40.0-70.0); PLATELET COUNT (AUTO) 290 K/uL (130-430); RED BLOOD CELL COUNT(AUTO) 3.13 MIL/uL (4.2-6.2); RED CELL DISTRIBUTION WIDTH 13.5 % (9.0-15.0)
[2018-07-18 08:03] VITALS: BP_SYST 128
[2018-07-18] MEDS: METOPROLOL TARTRATE 50 MG TABLET PO SCH ×2 (09:01→20:40)
[2018-07-18] MEDS: CLOPIDOGREL BISULFATE 75 MG TABLET PO SCH (09:01)
[2018-07-18] MEDS: LEVOTHYROXINE SODIUM 0.1 MG TABLET PO SCH (09:02)
[2018-07-18] MEDS: FOLIC ACID 1 MG TABLET PO SCH (09:02)
[2018-07-18] MEDS: PARoxetine HCL 20 MG TABLET PO SCH (09:02)
[2018-07-18] MEDS: MULTIVITS,CA,MINERALS/IRON/FA 1 TABLET PO SCH (09:02)
[2018-07-18] MEDS: CEFEPIME 1 GM in D5W 50 ML IV SCH ×2 (09:03→20:41)
[2018-07-18] MEDS: ENOXAPARIN SODIUM 30 MG/0.3 ML SYRINGE SUBCUT SCH (09:05)
[2018-07-18] MEDS: INSULIN REGULAR, HUMAN 100 UNITS/ML, 10 ML VIAL (novoLIN R) SUBCUT PRN ×3 (11:25→20:37)
[2018-07-18 12:00] VITALS: BP_SYST 118
[2018-07-18 16:00] VITALS: BP_SYST 156
[2018-07-18 20:00] VITALS: BP_SYST 136
[2018-07-18] MEDS: TAMSULOSIN HCL 0.4 MG CAP PO SCH (20:39)
[2018-07-18] MEDS: ATORVASTATIN 10 MG TABLET PO SCH (20:40)
[2018-07-18 23:30] VITALS: BP_SYST 144
[2018-07-19] MEDS: INSULIN REGULAR, HUMAN 100 UNITS/ML, 10 ML VIAL (novoLIN R) SUBCUT PRN ×4 (06:17→22:19)
[2018-07-19 08:00] VITALS: BP_SYST 137
[2018-07-19] MEDS: FOLIC ACID 1 MG TABLET PO SCH (08:46)
[2018-07-19] MEDS: METOPROLOL TARTRATE 50 MG TABLET PO SCH ×2 (08:47→22:14)
[2018-07-19] MEDS: MULTIVITS,CA,MINERALS/IRON/FA 1 TABLET PO SCH (08:47)
[2018-07-19] MEDS: PARoxetine HCL 20 MG TABLET PO SCH (08:47)
[2018-07-19] MEDS: CLOPIDOGREL BISULFATE 75 MG TABLET PO SCH (08:47)
[2018-07-19] MEDS: LEVOTHYROXINE SODIUM 0.1 MG TABLET PO SCH (08:47)
[2018-07-19] MEDS: ENOXAPARIN SODIUM 30 MG/0.3 ML SYRINGE SUBCUT SCH (08:50)
[2018-07-19] MEDS: CEFEPIME 1 GM in D5W 50 ML IV SCH ×2 (08:51→22:14)
[2018-07-19 12:15] VITALS: BP_SYST 124
[2018-07-19 16:10] VITALS: BP_SYST 146
[2018-07-19 19:55] VITALS: BP_SYST 148
[2018-07-19] MEDS: ATORVASTATIN 10 MG TABLET PO SCH (22:14)
[2018-07-19] MEDS: TAMSULOSIN HCL 0.4 MG CAP PO SCH (22:14)
[2018-07-19 23:00] VITALS: BP_SYST 146
[2018-07-20 08:00] VITALS: BP_SYST 135
[2018-07-20] MEDS: ENOXAPARIN SODIUM 30 MG/0.3 ML SYRINGE SUBCUT SCH (09:34)
[2018-07-20] MEDS: PARoxetine HCL 20 MG TABLET PO SCH (09:36)
[2018-07-20] MEDS: LEVOTHYROXINE SODIUM 0.1 MG TABLET PO SCH (09:36)
[2018-07-20] MEDS: FOLIC ACID 1 MG TABLET PO SCH (09:36)
[2018-07-20] MEDS: CEFEPIME 1 GM in D5W 50 ML IV SCH (09:36)
[2018-07-20] MEDS: CLOPIDOGREL BISULFATE 75 MG TABLET PO SCH (09:36)
[2018-07-20] MEDS: MULTIVITS,CA,MINERALS/IRON/FA 1 TABLET PO SCH (09:37)
[2018-07-20] MEDS: METOPROLOL TARTRATE 50 MG TABLET PO SCH (09:50)
[2018-07-20] MEDS: INSULIN REGULAR, HUMAN 100 UNITS/ML, 10 ML VIAL (novoLIN R) SUBCUT PRN ×2 (12:08→17:40)
[2018-07-20 12:20] VITALS: BP_SYST 134
[2018-07-20 16:05] VITALS: BP_SYST 125
[2018-07-20 16:22] VITALS: BP_SYST 134
== END 2018-07-20 19:25 | DRG 682 ==
LOC: SED 16:23 → SMU 07-16 00:07
PROVIDERS: ADMIT Family Medicine; ATTEND Family Medicine
DX: N17.9 Acute kidney failure, unspecified (principal); G93.41 Metabolic encephalopathy; N39.0 Urinary tract infection, site not specified; E86.0 Dehydration; E11.22 Type 2 diabetes mellitus with diabetic chronic kidney disease; I12.9 Hypertensive chronic kidney disease with stage 1 through stage 4 chronic kidney disease, or unspecified chronic kidney disease; N18.9 Chronic kidney disease, unspecified; E03.9 Hypothyroidism, unspecified; M19.90 Unspecified osteoarthritis, unspecified site; G40.909 Epilepsy, unspecified, not intractable, without status epilepticus; Z88.8 Allergy status to other drugs, medicaments and biological substances; Z79.899 Other long term (current) drug therapy; Z79.02 Long term (current) use of antithrombotics/antiplatelets
CPT/HCPCS: 36415; 70450-TC; 71045; 74018; 80048; 80053; 80307; 81000-TC; 82140-TC; 82962; 83036; 83605; 83880; 84439; 84484; 85025; 85610-TC; 87040-TC; 87081; 87086; 87186-TC; 90656; 93005; 96365; 97110-GP; 97116-GP; 99285; G0482; J0692; J1650; J1815; J7030; J7050; J7060

== ENCOUNTER 2018-08-12 11:52 | Inpatient (IN) | payer OTHER ==
[~2018-08-12] VITALS: Ht 165.1 cm; Wt 54.4 kg
[2018-08-12 11:52] VITALS: BP_SYST 143
[~2018-08-12 11:52] MED LIST changes: -DICY10CA13 PO
[2018-08-12] MEDS ORDERED: NACL 0.9% 1,000 ML IV ONE ×3 (12:00→14:00)
[2018-08-12] MEDS ORDERED: INSU300I SQ (12:04)
[2018-08-12] MEDS ORDERED: INSU100V SQ (12:04)
[2018-08-12 12:40] LABS: BASOPHILS % (AUTO) 0.5 % (0.0-2.0); EOSINOPHILS # (AUTO) 0.2 K/uL (0.0-0.4); HEMATOCRIT 37.1 % (36-48); HEMOGLOBIN 12.3 g/dL (12.0-16.0); LYMPHOCYTES # (AUTO) 1.7 K/uL (1.0-5.5); MEAN CORPUSCULAR HEMOGLOBIN 32 pg (27-31); MEAN CORPUSCULAR HGB CONC 33 % (32-36); MEAN CORPUSCULAR VOLUME 96 fL (79.0-98.0); MONOCYTES # (AUTO) 0.6 K/uL (0.0-1.0); MONOCYTES % (AUTO) 7.1 % (1.7-9.3); NEUTROPHILS # (AUTO) 6.5 K/uL (1.8-7.7); NEUTROPHILS % (AUTO) 71.4 % (40.0-70.0); PLATELET COUNT (AUTO) 377 K/uL (130-430); RED BLOOD CELL COUNT(AUTO) 3.86 MIL/uL (4.2-6.2); RED CELL DISTRIBUTION WIDTH 12.7 % (9.0-15.0)
[2018-08-12 12:53] LABS: CALCIUM 9.9 mg/dL (8.4-11.0); CREATININE 2.23 mg/dL (0.55-1.30)
[2018-08-12 12:58] LABS: TOTAL BILIRUBIN 0.5 mg/dL (0.0-1.0)
[2018-08-12 13:06] LABS: PROTHROMBIN TIME 10.2 SECS (9.5-12.5)
[2018-08-12 13:27] LABS: BILIRUBIN,URINE NEGATIVE (NEGATIVE); BLOOD, URINE 3+ (NEGATIVE); CLARITY/URINE CLOUDY (CLEAR); COLOR,URINE YELLOW (YELLOW); GLUCOSE,URINE 3+ (NEGATIVE); KETONES,URINE NEGATIVE (NEGATIVE); LEUKOCYTE ESTERASE ,URINE 3+ (NEGATIVE); NITRITE, URINE NEGATIVE (NEGATIVE); PROTEIN URINE 1+ (NEGATIVE); UROBILINOGEN,URINE 0.2 (0.2-1.0)
[2018-08-12 13:32] LABS: BACTERIA,URINE FEW /HPF (None Seen); MUCUS,URINE 1+ /LPF (None Seen); WBC,URINE >100 /HPF (0-3)
[2018-08-12] MEDS ORDERED: PIPERACILLIN/TAZO 4.5 GM in NS 100 ML IV ONE (14:00)
[2018-08-12] MEDS ORDERED: VANCOMYCIN HCL 1,000 MG in NS 250 ML IV ONE (14:00)
[2018-08-12] MEDS ORDERED: VANCOMYCIN HCL 1000 MG/VIAL IV ONE (14:09)
[2018-08-12] MEDS ORDERED: PIPERACILLIN/TAZOBACTAM 4.5 GM/VIAL (ZOSYN) IV ONE (14:10)
[2018-08-12 15:50] VITALS: BP_SYST 130
[2018-08-12] MEDS ORDERED: ACETAMINOPHEN 325 MG TABLET PO PRN (16:30)
[2018-08-12] MEDS: INSULIN REGULAR, HUMAN 100 UNITS/ML, 10 ML VIAL (novoLIN R) SUBCUT PRN ×2 (17:24→21:31)
[2018-08-12 19:05] VITALS: BP_SYST 133
[2018-08-12] MEDS: POTASSIUM CHLORIDE 10 MEQ in NACL 0.9% 1,000 ML IV SCH (19:11)
[2018-08-12] MEDS: PIPERACILLIN/TAZO 2.25G/DEX-IS 50 ML IV SCH ×2 (19:12→23:56)
[2018-08-12] MEDS: ATORVASTATIN 10 MG TABLET PO SCH (21:33)
[2018-08-12] MEDS: METOPROLOL TARTRATE 50 MG TABLET PO SCH (21:33)
[2018-08-12] MEDS: TAMSULOSIN HCL 0.4 MG CAP PO SCH (21:33)
[2018-08-13 00:30] VITALS: BP_SYST 146
[2018-08-13 00:41] VITALS: BP_SYST 117
[2018-08-13] MEDS: PIPERACILLIN/TAZO 2.25G/DEX-IS 50 ML IV SCH ×4 (05:47→23:27)
[2018-08-13] MEDS: POTASSIUM CHLORIDE 10 MEQ in NACL 0.9% 1,000 ML IV SCH ×2 (05:47→13:24)
[2018-08-13] MEDS: LEVOTHYROXINE SODIUM 0.1 MG TABLET PO SCH (05:47)
[2018-08-13 06:55] LABS: BASOPHILS % (AUTO) 0.2 % (0.0-2.0); EOSINOPHILS # (AUTO) 0.2 K/uL (0.0-0.4); EOSINOPHILS % (AUTO) 2.7 % (0.0-4.0); HEMATOCRIT 29.3 % (36-48); HEMOGLOBIN 10.3 g/dL (12.0-16.0); LYMPHOCYTES # (AUTO) 1.5 K/uL (1.0-5.5); MEAN CORPUSCULAR HEMOGLOBIN 35 pg (27-31); MEAN CORPUSCULAR HGB CONC 35 % (32-36); MEAN CORPUSCULAR VOLUME 101 fL (79.0-98.0); MONOCYTES # (AUTO) 0.7 K/uL (0.0-1.0); MONOCYTES % (AUTO) 8.7 % (1.7-9.3); NEUTROPHILS # (AUTO) 6.1 K/uL (1.8-7.7); NEUTROPHILS % (AUTO) 70.4 % (40.0-70.0); PLATELET COUNT (AUTO) 267 K/uL (130-430); RED BLOOD CELL COUNT(AUTO) 2.91 MIL/uL (4.2-6.2); RED CELL DISTRIBUTION WIDTH 12.9 % (9.0-15.0); WHITE BLOOD COUNT (AUTO) 8.5 K/uL (4.8-10.8)
[2018-08-13 07:04] LABS: CALCIUM 8.6 mg/dL (8.4-11.0); CREATININE 2.1 mg/dL (0.55-1.30); POTASSIUM 4.1 mmol/L (3.5-5.1)
[2018-08-13] MEDS: CLOPIDOGREL BISULFATE 75 MG TABLET PO SCH (08:15)
[2018-08-13] MEDS: CALCIUM CARBONATE/VITAMIN D3 1 TAB TABLET PO SCH (08:15)
[2018-08-13] MEDS: FOLIC ACID 1 MG TABLET PO SCH (08:15)
[2018-08-13] MEDS: METOPROLOL TARTRATE 50 MG TABLET PO SCH ×2 (08:15→21:47)
[2018-08-13] MEDS: PARoxetine HCL 20 MG TABLET PO SCH (08:15)
[2018-08-13 08:16] VITALS: BP_SYST 117
[2018-08-13] MEDS: INSULIN REGULAR, HUMAN 100 UNITS/ML, 10 ML VIAL (novoLIN R) SUBCUT PRN ×3 (10:59→21:51)
[2018-08-13 12:41] VITALS: BP_SYST 134
[2018-08-13] MEDS ORDERED: GENTAMICIN 120 MG/ ISO-OSM 100 ML PREMIX IV SCH (14:00)
[2018-08-13 17:06] VITALS: BP_SYST 130
[2018-08-13 19:10] VITALS: BP_SYST 141
[2018-08-13] MEDS: TAMSULOSIN HCL 0.4 MG CAP PO SCH (21:41)
[2018-08-13] MEDS: ATORVASTATIN 10 MG TABLET PO SCH (21:41)
[2018-08-14 00:51] VITALS: BP_SYST 136
[2018-08-14] MEDS ORDERED: KCL 20 mEq in 100 mL (PREMIX) 100 ML IV ONE (02:03)
[2018-08-14] MEDS: POTASSIUM CHLORIDE 10 MEQ in NACL 0.9% 1,000 ML IV SCH ×2 (02:10→11:37)
[2018-08-14] MEDS: PIPERACILLIN/TAZO 2.25G/DEX-IS 50 ML IV SCH ×3 (05:29→18:18)
[2018-08-14] MEDS: LEVOTHYROXINE SODIUM 0.1 MG TABLET PO SCH (05:56)
[2018-08-14 06:57] LABS: CALCIUM 8.2 mg/dL (8.4-11.0); CREATININE 1.87 mg/dL (0.55-1.30); POTASSIUM 4.1 mmol/L (3.5-5.1)
[2018-08-14 08:04] VITALS: BP_SYST 142
[2018-08-14] MEDS ORDERED: VANCOMYCIN HCL 750 MG in NS 250 ML IV SCH (09:00)
[2018-08-14] MEDS: FOLIC ACID 1 MG TABLET PO SCH (09:41)
[2018-08-14] MEDS: CLOPIDOGREL BISULFATE 75 MG TABLET PO SCH (09:42)
[2018-08-14] MEDS: METOPROLOL TARTRATE 50 MG TABLET PO SCH ×2 (09:42→20:45)
[2018-08-14] MEDS: CALCIUM CARBONATE/VITAMIN D3 1 TAB TABLET PO SCH (09:42)
[2018-08-14] MEDS: PARoxetine HCL 20 MG TABLET PO SCH (09:43)
[2018-08-14 11:29] VITALS: BP_SYST 140
[2018-08-14] MEDS: INSULIN REGULAR, HUMAN 100 UNITS/ML, 10 ML VIAL (novoLIN R) SUBCUT PRN ×2 (11:37→17:43)
[2018-08-14 15:14] VITALS: BP_SYST 141
[2018-08-14] MEDS: ATORVASTATIN 10 MG TABLET PO SCH (20:45)
[2018-08-14] MEDS: TAMSULOSIN HCL 0.4 MG CAP PO SCH (20:45)
[2018-08-14 23:51] VITALS: BP_SYST 150
[2018-08-15] MEDS: LEVOTHYROXINE SODIUM 0.1 MG TABLET PO SCH (06:09)
[2018-08-15] MEDS: PIPERACILLIN/TAZO 2.25G/DEX-IS 50 ML IV SCH ×3 (06:09→11:57)
[2018-08-15 08:02] VITALS: BP_SYST 142
[2018-08-15] MEDS: CALCIUM CARBONATE/VITAMIN D3 1 TAB TABLET PO SCH (09:36)
[2018-08-15] MEDS: FOLIC ACID 1 MG TABLET PO SCH (09:36)
[2018-08-15] MEDS: METOPROLOL TARTRATE 50 MG TABLET PO SCH ×2 (09:37→21:12)
[2018-08-15] MEDS: PARoxetine HCL 20 MG TABLET PO SCH (09:37)
[2018-08-15] MEDS: CLOPIDOGREL BISULFATE 75 MG TABLET PO SCH (09:37)
[2018-08-15] MEDS: POTASSIUM CHLORIDE 10 MEQ in NACL 0.9% 1,000 ML IV SCH ×4 (09:37→17:27)
[2018-08-15] MEDS: INSULIN REGULAR, HUMAN 100 UNITS/ML, 10 ML VIAL (novoLIN R) SUBCUT PRN ×2 (11:56→17:27)
[2018-08-15 12:00] VITALS: BP_SYST 149
[2018-08-15 16:00] VITALS: BP_SYST 131
[2018-08-15] MEDS: TAMSULOSIN HCL 0.4 MG CAP PO SCH (21:11)
[2018-08-15] MEDS: LACTOBACILLUS RHAMNOSUS GG 1 CAP CAPSULE PO SCH (21:11)
[2018-08-15] MEDS: ATORVASTATIN 10 MG TABLET PO SCH (21:12)
[2018-08-15] MEDS: AMPICILLIN SODIUM/SULBACTAM NA 1.5 GM in NS 50 ML IV SCH (21:24)
[2018-08-15 23:38] VITALS: BP_SYST 130
[2018-08-16] MEDS: POTASSIUM CHLORIDE 10 MEQ in NACL 0.9% 1,000 ML IV SCH ×2 (05:22→14:18)
[2018-08-16] MEDS: LEVOTHYROXINE SODIUM 0.1 MG TABLET PO SCH (06:21)
[2018-08-16 08:23] VITALS: BP_SYST 131
[2018-08-16] MEDS: LACTOBACILLUS RHAMNOSUS GG 1 CAP CAPSULE PO SCH (08:38)
[2018-08-16] MEDS: AMPICILLIN SODIUM/SULBACTAM NA 1.5 GM in NS 50 ML IV SCH (08:38)
[2018-08-16] MEDS: CALCIUM CARBONATE/VITAMIN D3 1 TAB TABLET PO SCH (08:38)
[2018-08-16] MEDS: FOLIC ACID 1 MG TABLET PO SCH (08:38)
[2018-08-16] MEDS: CLOPIDOGREL BISULFATE 75 MG TABLET PO SCH (08:39)
[2018-08-16] MEDS: PARoxetine HCL 20 MG TABLET PO SCH (08:39)
[2018-08-16] MEDS: METOPROLOL TARTRATE 50 MG TABLET PO SCH (08:39)
[2018-08-16] MEDS: INSULIN REGULAR, HUMAN 100 UNITS/ML, 10 ML VIAL (novoLIN R) SUBCUT PRN (12:04)
[2018-08-16 12:22] VITALS: BP_SYST 146
[2018-08-16 16:49] VITALS: BP_SYST 152
[2018-08-16 17:13] VITALS: BP_SYST 152
== END 2018-08-16 17:25 | DRG 682 ==
LOC: SED 11:52 → STU 14:55
PROVIDERS: ADMIT Internal Medicine; ATTEND Internal Medicine
DX: N17.9 Acute kidney failure, unspecified (principal); G93.41 Metabolic encephalopathy; E43 Unspecified severe protein-calorie malnutrition; J18.1 Lobar pneumonia, unspecified organism; N39.0 Urinary tract infection, site not specified; N18.9 Chronic kidney disease, unspecified; I12.9 Hypertensive chronic kidney disease with stage 1 through stage 4 chronic kidney disease, or unspecified chronic kidney disease; E78.5 Hyperlipidemia, unspecified; E03.9 Hypothyroidism, unspecified; E11.22 Type 2 diabetes mellitus with diabetic chronic kidney disease; E11.65 Type 2 diabetes mellitus with hyperglycemia; M19.90 Unspecified osteoarthritis, unspecified site; B95.2 Enterococcus as the cause of diseases classified elsewhere; N31.9 Neuromuscular dysfunction of bladder, unspecified; Z78.9 Other specified health status; Z79.4 Long term (current) use of insulin; Z86.73 Personal history of transient ischemic attack (TIA), and cerebral infarction without residual deficits; Z87.440 Personal history of urinary (tract) infections; Z68.20 Body mass index [BMI] 20.0-20.9, adult; Z88.8 Allergy status to other drugs, medicaments and biological substances; Z79.899 Other long term (current) drug therapy
CPT/HCPCS: 36415; 71045; 80048; 80053; 81000-TC; 82962; 83605; 85025; 85610-TC; 85730-TC; 87040-TC; 87081; 87086; 87186-TC; 93005; 96365; 96367; 96368; 97110-GP; 97116-GP; 97530-GP; 99285; J0295; J1580; J1815; J2543; J3370; J3480; J7030; J7050